=== PATIENT | female | born 1960 | race American Indian/Alaskan Native ===

== ENCOUNTER 2016-12-16 05:55 | Day surgery (SDC) | payer OTHER ==
[2016-12-16] MEDS ORDERED: DIPRIVAN 10 MG/ML IV ONE (07:41)
[2016-12-16] MEDS ORDERED: NACL 0.9% 1000 ML 1,000 ML IV SCH (08:00)
--- NOTE | 2016-12-16 08:07 | Anesthesia Day of Surgery ---
Anesthesia Day of Surgery - Day of Surgery Patient Examined: Yes Patient H&P Reviewed: Yes Patient is NPO: Yes
--- NOTE | 2016-12-16 08:07 | Anesthesia Consultation ---
Anesthesia Consult and Med Hx Date of service: 12/16/16 - Airway Anesthetic Teeth Evaluation: Dentures (upper) ROM Head & Neck: Adequate Mental/Hyoid Distance: Adequate Mallampati Class: Class II Intubation Access Assessment: Probably Good - Pulmonary Exam CTA: Yes - Cardiac Exam Cardiac Exam: RRR - Pre-Operative Health Status ASA Pre-Surgery Classification: ASA3 Proposed Anesthetic Plan: MAC - Pulmonary Hx Smoking: Yes (cigar 3x per week) Hx Asthma: No Hx Sleep Apnea: No - Cardiovascular System Hx Hypertension: Yes (not on meds after gastric bypass 5 yrs ago) Hx Heart Attack/AMI: No - Central Nervous System Hx Neuromuscular Disorder: No (migraine) Hx Seizures: No CVA: No - Gastrointestinal Hx Gastroesophageal Reflux Disease: Yes (med prn) - Endocrine Hx Renal Disease: No Hx Liver Disease: No Hx Non-Insulin Dependent Diabetes: No - Hematic Hx Sickle Cell Disease: No - Other Systems Hx Obesity: Yes - Additional Comments Anesthesia Medical History Comments: NAC
--- NOTE | 2016-12-16 08:26 | Operative Report ---
Operative Report Operative Report: EGD Post bypass DATE: 12/16/16 OPERATIVE REPORT - EGD PREOP DIAGNOSIS: gastric dyspepsia, GERD POSTOP DIAGNOSIS: failure of GJ anastamosis, hiatal hernia SURGERY: Upper endoscopy. SURGEON: John Meadows M.D. TYPE OF ANESTHESIA: MAC. ESTIMATED BLOOD LOSS: None. COMPLICATIONS: None. SPECIMENS REMOVED: None. FINDINGS: 1. normal esophagus 2. gastric pouch - 40ml 3. gastrojejunal anastomosis is 20mm INDICATIONS:INDICATION FOR PROCEDURE: Patient is a 56-year-old female s/p gastric bypass in. The patient is here today for evaluation for revisional surgery. The patient is here for a planned EGD to look for pathology that explain her GERD and dyspepsia symptoms. PROCEDURE DETAILS: After consent was reviewed, patient was taken back to the operating room where patient was placed in the left lateral decubitus position and a bite block was placed in the mouth. After a time-out was called, MAC anesthesia was initiated. I then passed the endoscope into the patients oropharynx, into the esophagus, visualized the entire esophagus, which was all within normal limits, with the exception of a hiatal hernia. I then visualized the gastric pouch which was normal and about 40ml in size. The gastrojejunal anastomosis was normal at about 20mm. The proximal portion of the afsaneh limb was normal. I then desufflated the gastric pouch and removed the endoscope. Patient tolerated procedure well and was transferred to recovery room in good and stable condition.
--- NOTE | 2016-12-16 08:27 | Discharge Summary ---
Providers - Providers Date of discharge: 12/16/16 Attending physician: PIA MILLER Primary care physician: CRISTIANO POZO Hospitalization Condition: Good Procedures: egd Disposition: DC- TO HOME OR SELFCARE Core Measure Documentation - Palliative Care Palliative Care/ Comfort Measures: Not Applicable - Core Measures Any of the following diagnoses?: none Exam - Physical Exam Narrative exam: unchanged from pre-op - Constitutional Vitals: Temp Pulse Resp BP Pulse Ox 97.7 F 84 20 140/84 100 12/16/16 08:06 12/16/16 08:06 12/16/16 08:06 12/16/16 08:06 12/16/16 08:06 Plan Activity: no restrictions Weight Bearing Status: Full Weight Bearing Diet: regular Follow up with: CRISTIANO POZO MD [Primary Care Provider] - 7 Days
--- NOTE | 2016-12-16 09:01 | Post Anesthesia Evaluation ---
- Post Anesthesia Evaluation Patient Participated: Yes Airway Patent: Yes Stable Respiratory Function: Yes Nausea/Vomiting: No Temp > 96.8F: Yes Pain Manageable: Yes Adequeate Hydration: Yes Anesthesia Complications: No Block Receding Appropriately: Not Applicable Patient on Ventilator: No
[2016-12-16 09:53] VITALS: BP 139/88
== END 2016-12-16 05:56 | disposition home or self-care (01) ==
LOC: GIO 05:55 → EDBD 09:00
PROVIDERS: ATTEND Surgery
DX: K91.89 Other postprocedural complications and disorders of digestive system (principal); K44.9 Diaphragmatic hernia without obstruction or gangrene; K21.9 Gastro-esophageal reflux disease without esophagitis; F17.290 Nicotine dependence, other tobacco product, uncomplicated; I10 Essential (primary) hypertension; E66.9 Obesity, unspecified; Z68.35 Body mass index [BMI] 35.0-35.9, adult; Y83.8 Other surgical procedures as the cause of abnormal reaction of the patient, or of later complication, without mention of misadventure at the time of the procedure
CPT/HCPCS: 43235; J2704; J7030

== ENCOUNTER 2021-05-21 04:46 | Emergency (ER) | payer OTHER ==
[2021-05-21] MEDS ORDERED: ALUM-MAG HYDROXIDE-SIMETHICONE 200-200-20MG/5ML ORAL LIQD 30 ML PO ONE (07:41)
[2021-05-21] MEDS ORDERED: FAMOTIDINE 20 MG TAB PO ONE (07:41)
[2021-05-21] MEDS ORDERED: LIDOCAINE VISCOUS 2% 15 ML ORAL LIQD PO ONE (07:41)
--- NOTE | 2021-05-21 07:42 | Emergency Department Report ---
ED Abdominal Pain HPI - General Chief Complaint: Abdominal Pain Stated Complaint: STOMACH PAIN PUI?: No Time Seen by Provider: 05/21/21 07:40 Source: patient Mode of arrival: Ambulatory Limitations: No Limitations - History of Present Illness Initial Comments: 60 year old AA comes to ER with 2 week hx of ongoing abd pain. Epigastric radiating to her chest with n/v. Some SOB. No diarrhea or constipation. Nothing makes worse. She states the chest pain is so bad that sometimes she has to drink water and it does relieve it. She has hx gerd- but since taking g bladder out she has had no issues. She has pcp appnt 05/29. She also has obgyn appnt this month for DUB after menopause. She denies lower abd pain. Denies vag discharge. Endorses spotting. No dysuria. No fever or chills. On exam she in nad and has no active vomiting. She has been seen by Dr Meadows in the past for similar symptoms. Pt is obese/smoker/htn- will ro atypical cardiac presentation. BP elevated on arrival. Denies cp or sob at this time. MD Complaint: abdominal pain -: Gradual, week(s) Severity: moderate Severity scale (0 -10): 9 Quality: aching, burning Consistency: intermittent Improves With: nothing Worsens With: nothing Associated Symptoms: nausea, vomiting. denies: diarrhea, fever, chills, constipation, dysuria, hematemesis, hematochezia, melena, hematuria, anorexia, syncope - Related Data LMP (females 10-50): other Allergies Allergy/AdvReac Type Severity Reaction Status Date / Time No Known Allergies Allergy Verified 12/16/16 07:55 ED Review of Systems ROS: Stated complaint: STOMACH PAIN Other details as noted in HPI Comment: All other systems reviewed and negative ED Past Medical Hx - Past Medical History Previous Medical History?: Yes Hx Hypertension: Yes (not on meds after gastric bypass 5 yrs ago) Hx Heart Attack/AMI: No Hx GERD: Yes Hx Liver Disease: No Hx Renal Disease: No Hx Sickle Cell Disease: No Hx Seizures: No Hx Asthma: No Additional medical history: gout - Surgical History Hx Cholecystectomy: Yes Additional Surgical History: g bypass - Family History Family history: other (mom dec trauma; dad dec stomach ca) - Social History Smoking Status: Current Some Day Smoker Substance Use Type: None ED Physical Exam - General Limitations: No Limitations General appearance: alert, in no apparent distress - Head Head exam: Present: atraumatic, normocephalic - Eye Eye exam: Present: normal appearance - ENT ENT exam: Present: mucous membranes moist - Neck Neck exam: Present: normal inspection - Respiratory Respiratory exam: Present: normal lung sounds bilaterally. Absent: respiratory distress - Cardiovascular Cardiovascular Exam: Present: regular rate, normal rhythm. Absent: systolic murmur, diastolic murmur, rubs, gallop - GI/Abdominal GI/Abdominal exam: Present: soft, tenderness (epigastric - LUE and "some" LLE), normal bowel sounds, other (obese) - Extremities Exam Extremities exam: Present: normal inspection - Back Exam Back exam: Present: normal inspection - Neurological Exam Neurological exam: Present: alert, oriented X3 - Psychiatric Psychiatric exam: Present: normal affect, normal mood - Skin Skin exam: Present: warm, dry, intact, normal color. Absent: rash ED Course Vital Signs 05/21/21 05/21/21 07:32 09:57 Temperature 98.1 F Pulse Rate 76 79 Respiratory 20 16 Rate Blood Pressure 175/114 166/96 [Left] O2 Sat by Pulse 100 99 Oximetry - Reevaluation(s) Reevaluation #1: 05/21/21 07:46 meds: bp med - gout med and gerd med she can not remember names not taking vitamins not taking gerd or gout meds ED Medical Decision Making - Lab Data Result diagrams: 05/21/21 07:56 05/21/21 07:56 - EKG Data -: EKG Interpreted by Me EKG shows normal: sinus rhythm Rate: normal - EKG Data When compared to previous EKG there are: no significant change Interpretation: no acute changes - Medical Decision Making Labs 05/21/21 05/21/21 05/21/21 07:56 07:56 07:56 WBC 6.7 RBC 4.80 Hgb 13.1 Hct 41.5 MCV 86 MCH 27 L MCHC 32 RDW 16.9 H Plt Count 298 Lymph % (Auto) 39.9 H [place] % (Auto) 7.6 H Eos % (Auto) 0.4 Baso % (Auto) 0.8 Lymph # (Auto) 2.7 [place] # (Auto) 0.5 Eos # (Auto) 0.0 Baso # (Auto) 0.1 Seg Neutrophils % 51.3 Seg Neutrophils # 3.4 Sodium 142 Potassium 3.4 L Chloride 101.5 Carbon Dioxide 25 Anion Gap 19 BUN 6 L Creatinine 0.6 Estimated GFR > 60 BUN/Creatinine Ratio 10 Glucose 118 H Calcium 8.5 Total Bilirubin 0.50 AST 53 H ALT 28 Alkaline Phosphatase 95 Troponin T < 0.010 Total Protein 7.0 Albumin 4.2 Albumin/Globulin Ratio 1.5 Amylase 27 Lipase 48 Vital Signs 05/21/21 07:32 Temperature 98.1 F Pulse Rate 76 Respiratory 20 Rate Blood Pressure 175/114 [Left] O2 Sat by Pulse 100 Oximetry labs noted K replaced I've had a long discussion with pt about her vitamins - she has them she just has not been taking them. She states she will start to take them. She states she is taking her bp meds but not her gerd meds. bp noted on arrival taking meds bp down trending prior to dc Vital Signs 05/21/21 05/21/21 07:32 09:57 Temperature 98.1 F Pulse Rate 76 79 Respiratory 20 16 Rate Blood Pressure 175/114 166/96 [Left] O2 Sat by Pulse 100 99 Oximetry pain was gone p GI cocktail we have discussed her compliance with ppi on dc exam she is taking po/nad/no pain/ambulatory dc home with dc plan of care including diet, activity, meds and follow up. She verbalizes understanding of plan of care - Differential Diagnosis ro choley/gerd Critical care attestation.: If time is entered above; I have spent that time in minutes in the direct care of this critically ill patient, excluding procedure time. ED Disposition Clinical Impression: Epigastric pain, Hypokalemia, Hx of gastroesophageal reflux (GERD) Disposition: 01 HOME / SELF CARE / HOMELESS Is pt being admited?: No Does the pt Need Aspirin: No Condition: Stable Instructions: Abdominal Pain (ED) Additional Instructions: take your vitamins as we discussed daily over the counter pepcid 40 mg by mouth follow up with Dr Meadows stay well hydrated monitor your blood pressure and take your bp meds it was elevated today follow up with pcp - referral below follow up with your pcp and obgyn as you have planned Referrals: PRIMARY CARE, [Primary Care Provider] - 3-5 Days CIERRA FERREIRA MD [Staff Physician] - 3-5 Days PIA MEADOWS MD [Staff Physician] - 3-5 Days Forms: Work/School Release Form(ED) Time of Disposition: 09:30
[2021-05-21 08:33] LABS: Basophils # (Auto) 0.1 K/mm3 (0.0-0.1); Basophils % (Auto) 0.8 % (0.0-1.8); Eosinophils % (Auto) 0.4 % (0.0-4.3); Hematocrit 41.5 % (30.3-42.9); Hemoglobin 13.1 gm/dl (10.1-14.3); Lymphocytes # (Auto) 2.7 K/mm3 (1.2-5.4); Lymphocytes % (Auto) 39.9 % (13.4-35.0); Mean Corpuscular HGB Conc 32 % (30-34); Mean Corpuscular Volume 86 fl (79-97); Monocytes # (Auto) 0.5 K/mm3 (0.0-0.8); Monocytes % (Auto) 7.6 % (0.0-7.3); Platelet Count 298 K/mm3 (140-440); Red Cell Distribution Width 16.9 % (13.2-15.2)
[2021-05-21 08:56] LABS: Alanine Aminotransferase 28 units/L (7-56); Albumin 4.2 g/dL (3.9-5); Blood Urea Nitrogen 6 mg/dL (7-17); Calcium 8.5 mg/dL (8.4-10.2); Hemolysis Index 7
[2021-05-21 08:58] LABS: BUN/Creatinine Ratio 10
[2021-05-21] MEDS ORDERED: POTASSIUM CHLORIDE ER 20 MEQ TAB PO ONE (09:27)
[2021-05-21 09:58] VITALS: BP 166/96
== END 2021-05-21 09:59 | disposition home or self-care (01) ==
LOC: ED 04:46
DX: R10.13 Epigastric pain (principal); E87.6 Hypokalemia; K21.9 Gastro-esophageal reflux disease without esophagitis; F17.200 Nicotine dependence, unspecified, uncomplicated; I10 Essential (primary) hypertension
CPT/HCPCS: 36415; 80053; 82150; 83690; 84484; 85025; 99283

== ENCOUNTER 2021-11-06 08:53 | Inpatient (IN) | payer SELFPAY ==
[2021-11-06] MEDS ORDERED: ONDANSETRON 4 MG/2 ML INJ IV ONE (10:09)
[2021-11-06] MEDS ORDERED: PANTOPRAZOLE 40 MG INJ IV ONE (10:09)
[2021-11-06] MEDS ORDERED: MORPHINE 4 MG/1 ML INJ IV ONE (10:09)
--- NOTE | 2021-11-06 10:11 | Emergency Department Report ---
ED General Adult HPI - General Chief complaint: Abdominal Pain Stated complaint: STOMACH PAIN Time Seen by Provider: 11/06/21 09:30 Source: patient, RN notes reviewed Mode of arrival: Ambulatory Limitations: Physical Limitation - History of Present Illness Initial comments: The patient was evaluated in the emergency department for symptoms described in the history of present illness. He/she was evaluated in the context of the global COVID-19 pandemic, which necessitated consideration that the patient might be at risk for infection with the virus that causes COVID-19. Institutional protocols and algorithms that pertain to the evaluation of patien ts at risk for COVID-19 are in a state of rapid change based on information released by regulatory bodies including the CDC and federal and state organizations. These policies and algorithms were followed during the patient's care in the emergency department. Please note that these policies, procedures and recommendations changed on a rapid basis. This is a 61-year-old female with a distant history of gastric bypass and cholecystectomy. She presents to the ER today with a complaint of diffuse abdominal pain with nausea. No headache or neck pain. No shortness of breath had chest pain yesterday, but is not having chest pain today. No dysuria. Denies travel, surgery, immobilization, DVT and pulmonary embolism risk factors. Abdominal pain diffuse, sharp and throbbing, increases with palpation and decreases with rest -: Gradual, days(s) Location: chest, abdomen Quality: other Consistency: other Improves with: other Worsens with: other - Related Data Allergies Allergy/AdvReac Type Severity Reaction Status Date / Time No Known Allergies Allergy Verified 12/16/16 07:55 ED Review of Systems ROS: Stated complaint: STOMACH PAIN Other details as noted in HPI Constitutional: malaise, weakness. denies: fever Eyes: denies: eye discharge ENT: denies: epistaxis Respiratory: denies: cough Cardiovascular: chest pain Gastrointestinal: abdominal pain, nausea Genitourinary: denies: dysuria Musculoskeletal: myalgia Neurological: weakness Psychiatric: anxiety Hematological/Lymphatic: denies: easy bleeding ED Past Medical Hx - Past Medical History Hx Hypertension: Yes (not on meds after gastric bypass 5 yrs ago) Hx Heart Attack/AMI: No Hx GERD: Yes Hx Liver Disease: No Hx Renal Disease: No Hx Sickle Cell Disease: No Hx Seizures: No Hx Asthma: No Additional medical history: gout, stomach ulcer - Surgical History Hx Cholecystectomy: Yes Additional Surgical History: g bypass - Social History Smoking Status: Never Smoker ED Physical Exam - General Limitations: No Limitations General appearance: alert, anxious, in distress, obese - Head Head exam: Present: atraumatic, normocephalic - Eye Eye exam: Present: normal appearance, EOMI. Absent: nystagmus - ENT ENT exam: Present: normal exam, normal orophraynx, mucous membranes moist, normal external ear exam - Neck Neck exam: Present: normal inspection, full ROM. Absent: tenderness, meningismus - Respiratory Respiratory exam: Present: normal lung sounds bilaterally. Absent: respiratory distress, wheezes, rales, rhonchi, stridor, decreased breath sounds - Cardiovascular Cardiovascular Exam: Present: normal rhythm, tachycardia, normal heart sounds. Absent: bradycardia, irregular rhythm, systolic murmur, diastolic murmur, rubs, gallop - GI/Abdominal GI/Abdominal exam: Present: soft, tenderness, guarding. Absent: distended, rebound, rigid, pulsatile mass - Extremities Exam Extremities exam: Present: normal inspection, full ROM, other (2+ pulses noted in the bilateral upper and lower extremities. There is no palpable cord. negative Homans sign. Muscular compartments are soft. The pelvis is stable.). Absent: pedal edema, calf tenderness - Back Exam Back exam: Present: normal inspection. Absent: tenderness, CVA tenderness (R), CVA tenderness (L), paraspinal tenderness, vertebral tenderness - Neurological Exam Neurological exam: Present: alert, oriented X3, other (No facial droop. Tongue midline. Extraocular movements intact bilaterally. Facial sensation intact to light touch in V1, V2, V3 distribution bilaterally. 5 and a 5 strength in 4 extremities. Sensation intact to light touch in 4 extremities.). Absent: motor sensory deficit - Psychiatric Psychiatric exam: Present: anxious - Skin Skin exam: Present: warm, dry, intact, normal color. Absent: rash ED Course Vital Signs 11/06/21 09:31 Temperature 99.4 F Pulse Rate 117 H Respiratory 20 Rate Blood Pressure 130/94 O2 Sat by Pulse 97 Oximetry - Reevaluation(s) Reevaluation #1: 11/06/21 ideal body weight 136 lbs [place] Body Weight Equivalent to 62 kg Actual body weight is 147% (1.5x) ideal body weight Reevaluation #2: 11/06/21 13:35 Differential diagnosis, including but not limited to: Obstruction, colitis, diverticulitis, perforated viscus, pancreatitis, internal Hernia, pulmonary embolism, acute coronary syndrome, GERD, gastritis, hiatal hernia Assessment and plan: 61-year-old female status post gastric bypass with acute abdominal pain. She also has a low-grade temperature and is tachycardic. She had chest pain yesterday. Patient medicated aggressively with fluids, pain medication and nausea medication. She is found to have hypokalemia, hypomagnesemia, lactic acidosis, metabolic acidosis, elevated white blood cell count, and systemic inflammatory response syndrome. Patient's fluids will be dosed according to ideal body weight. Patient will be covered empirically with Zosyn, and appropriate electrolyte replenishment. Given complaint of chest pain, tachycardia and fever, as well as history of gastric bypass, a D-dimer is sent, elevated, CT scan of the chest is obtained, and found to be consistent with acute pancreatitis without evidence of pulmonary embolism. Hold aspirin at this time given acute abdominal pain. Contacted general surgery on-call, Dr. Scott. Discussed the patient's history, physical, laboratory studies and imaging study and clinical impression. He will follow in consultation. Hospital physician, Dr. Shell to admit patient to the medical service. Patient agreeable to admission 11/06/21 13:36 11/06/21 14:26 CTA chest shows acute pancreatitis. CT abdomen pelvis shows acute pancreatitis. Other acute findings not noted ED Medical Decision Making - Lab Data Result diagrams: 11/06/21 10:46 11/06/21 10:46 Vital Signs 11/06/21 09:31 Temperature 99.4 F Pulse Rate 117 H Respiratory 20 Rate Blood Pressure 130/94 O2 Sat by Pulse 97 Oximetry Lab Results 11/06/21 11/06/21 11/06/21 Range/Units 10:46 10:46 10:46 WBC 15.6 H (4.5-11.0) K/mm3 RBC 5.07 H (3.65-5.03) M/mm3 Hgb 13.6 (10.1-14.3) gm/dl Hct 43.8 H (30.3-42.9) % MCV 86 (79-97) fl MCH 27 L (28-32) pg MCHC 31 (30-34) % RDW 17.4 H (13.2-15.2) % Plt Count 244 (140-440) K/mm3 PT (12.2-14.9) Sec. INR (0.87-1.13) D-Dimer (0-234) ng/mlDDU Sodium 136 L (137-145) mmol/L Potassium 2.3 L* (3.6-5.0) mmol/L Chloride 91.4 L (98-107) mmol/L Carbon Dioxide 27 (22-30) mmol/L Anion Gap 20 mmol/L BUN 3 L (7-17) mg/dL Creatinine 0.7 (0.6-1.2) mg/dL Estimated GFR > 60 ml/min BUN/Creatinine Ratio 4 % Glucose 146 H (65-100) mg/dL Lactic Acid (0.7-2.0) mmol/L Calcium 7.9 L (8.4-10.2) mg/dL Magnesium (1.7-2.3) mg/dL Total Bilirubin 1.20 (0.1-1.2) mg/dL AST 77 H (5-40) units/L ALT 60 H (7-56) units/L Alkaline Phosphatase 107 (35-129) units/L Troponin T < 0.010 (0.00-0.029) ng/mL Total Protein 6.5 (6.3-8.2) g/dL Albumin 3.7 L (3.9-5) g/dL Albumin/Globulin Ratio 1.3 % Lipase 683 H (13-60) units/L Blood Type Antibody Screen 11/06/21 11/06/21 11/06/21 Range/Units 10:46 10:46 10:54 WBC (4.5-11.0) K/mm3 RBC (3.65-5.03) M/mm3 Hgb (10.1-14.3) gm/dl Hct (30.3-42.9) % MCV (79-97) fl MCH (28-32) pg MCHC (30-34) % RDW (13.2-15.2) % Plt Count (140-440) K/mm3 PT 15.1 H (12.2-14.9) Sec. INR 1.04 (0.87-1.13) D-Dimer 2484.84 H (0-234) ng/mlDDU Sodium (137-145) mmol/L Potassium (3.6-5.0) mmol/L Chloride (98-107) mmol/L Carbon Dioxide (22-30) mmol/L Anion Gap mmol/L BUN (7-17) mg/dL Creatinine (0.6-1.2) mg/dL Estimated GFR ml/min BUN/Creatinine Ratio % Glucose (65-100) mg/dL Lactic Acid 5.00 H* (0.7-2.0) mmol/L Calcium (8.4-10.2) mg/dL Magnesium (1.7-2.3) mg/dL Total Bilirubin (0.1-1.2) mg/dL AST (5-40) units/L ALT (7-56) units/L Alkaline Phosphatase (35-129) units/L Troponin T (0.00-0.029) ng/mL Total Protein (6.3-8.2) g/dL Albumin (3.9-5) g/dL Albumin/Globulin Ratio % Lipase (13-60) units/L Blood Type B POSITIVE Antibody Screen Negative 11/06/21 Range/Units 11:00 WBC (4.5-11.0) K/mm3 RBC (3.65-5.03) M/mm3 Hgb (10.1-14.3) gm/dl Hct (30.3-42.9) % MCV (79-97) fl MCH (28-32) pg MCHC (30-34) % RDW (13.2-15.2) % Plt Count (140-440) K/mm3 PT (12.2-14.9) Sec. INR (0.87-1.13) D-Dimer (0-234) ng/mlDDU Sodium (137-145) mmol/L Potassium (3.6-5.0) mmol/L Chloride (98-107) mmol/L Carbon Dioxide (22-30) mmol/L Anion Gap mmol/L BUN (7-17) mg/dL Creatinine (0.6-1.2) mg/dL Estimated GFR ml/min BUN/Creatinine Ratio % Glucose (65-100) mg/dL Lactic Acid (0.7-2.0) mmol/L Calcium (8.4-10.2) mg/dL Magnesium 1.00 L (1.7-2.3) mg/dL Total Bilirubin (0.1-1.2) mg/dL AST (5-40) units/L ALT (7-56) units/L Alkaline Phosphatase (35-129) units/L Troponin T (0.00-0.029) ng/mL Total Protein (6.3-8.2) g/dL Albumin (3.9-5) g/dL Albumin/Globulin Ratio % Lipase (13-60) units/L Blood Type Antibody Screen - EKG Data -: EKG Interpreted by [facility] - EKG Data 11/06/21 13:33 The EKG is interpreted at 10: 10. Sinus rhythm, rates tachycardia, 101 bpm. Normal axis, normal P wave axis, left ventricular hypertrophy, motion artifact, nonspecific T wave abnormality. This is not a STEMI. - Radiology Data Radiology results: pending, report reviewed, image reviewed CHEST 1 VIEW 11/06/2021 9:44 AM INDICATION / CLINICAL INFORMATION: Upper abdominal pain, history of chest pain yester. COMPARISON: None available. FINDINGS: SUPPORT DEVICES: None. HEART / MEDIASTINUM: No significant abnormality. LUNGS / PLEURA: No significant pulmonary or pleural abnormality. No pneumothorax. ADDITIONAL FINDINGS: No significant additional findings. IMPRESSION: No acute abnormality. Signer Name: Jarvis Garcia MD Signed: 11/06/2021 9:48 AM Workstation Name: [id number] CTA CHEST WITH CONTRAST INDICATION / CLINICAL INFORMATION: Acute chest pain and tachycardia. TECHNIQUE: Axial CT images were obtained through the chest after injection of 100 cc of Omnipaque 350 IV contrast. 3 plane MIP and/or 3D reconstructions were produced. All CT scans at this location are performed using CT dose reduction for ALARA by means of automated exposure control. COMPARISON: None available. FINDINGS: PULMONARY EMBOLUS: None. THORACIC AORTA: No s ignificant abnormality. HEART: No significant abnormality. CORONARY ARTERY CALCIFICATION: Absent -- None. MEDIASTINUM / AMPARO: No significant abnormality. PLEURA: No pleural effusion. No pneumothorax. LUNGS: No acute air space or interstitial disease. ADDITIONAL FINDINGS: None. UPPER ABDOMEN: The liver is hypodense consistent with moderate to severe hepatic steatosis. Moderate inflammatory changes in mild fluid surrounding the pancreatic tail suggesting pancreatitis. Surgical changes are noted in the proximal stomach, correlate with history. SKELETAL STRUCTURES: No significant osseous abnormality. I MPRESSION: 1. No CT evidence for pulmonary embolism. 2. No acute cardiopulmonary findings are appreciated. 3. Acute pancreatitis is suspected in the upper abdomen which is partially imaged. 4. Moderate to severe hepatic steatosis. Signer Name: Davidson Villafuerte Jr, MD Signed: 11/06/2021 12:31 PM Workstation Name: [id number] CT ABDOMEN AND PELVIS WITH CONTRAST INDICATION / CLINICAL INFORMATION: Acute abdominal pain. IV oral contrast. TECHNIQUE: Axial CT images were obtained through the abdomen and pelvis after 100 cc of Omnipaque 350 IV contrast. Sagittal and coronal reformatted images. All CT scans at this location are performed using CT dose reduction for ALARA by means of automated exposure control. COMPARISON: None available. FINDINGS: LOWER CHEST: No significant abnormality. LIVER: The liver is diffusely hypodense consistent with moderate to severe steatosis. No focal liver mass. GALLBLADDER: Surgically absent. BILE DUCTS: No significant abnormality. PANCREAS: The pancreatic tissue is mildly edematous with surrounding fluid and inflammatory change consistent with acute interstitial pancreatitis. No focal mass or pseudocyst. No necrosis. SPLEEN: No significant abnormality. ADRENALS: No significant abnormality. RIGHT KIDNEY and URETER: No significant abnormality. 1.7 cm cyst is noted near mid pole. LEFT KIDNEY and URETER: No significant abnormality. STOMACH and SMALL BOWEL: Surgical changes are identified in the proximal stomach which may represent bypass. Surgical suture lines are also identified in the mid small bowel. The remaining small bowel is unremarkable. COLON: No significant abnormality. APPENDIX: No significant abnormality. PERITONEUM: No free air. No fluid collection. LYMPH NODES: No significant adenopathy. AORTA and ARTERIES: No significant abnormality. IVC and VEINS: No significant abnormality. URINARY BLADDER: No significant abnormality. REPRODUCTIVE ORGANS: Moderate uterine fibroid disease is identified. There are at least 3 moderate to large fibroids with the largest measuring up to 4.7 cm. The adnexa are unremarkable. ADDITIO NAL FINDINGS: None. SKELETAL SYSTEM: No significant abnormality. IMPRESSION: Acute interstitial pancreatitis. Moderate to severe hepatic steatosis. Cholecystectomy. No biliary dilatation. Moderate uterine fibroid disease. Signer Name: Davidson Villafuerte Jr, MD Signed: 11/06/2021 12:38 PM Workstation Name: [id number] Critical Care Time: Yes Critical care time in (mins) excluding proc time.: 35 Critical care attestation.: If time is entered above; I have spent that time in minutes in the direct care of this critically ill patient, excluding procedure time. ED Disposition Clinical Impression: Acute abdominal pain, Hypokalemia, Systemic inflammatory response syndrome (SIRS), Dehydration, Transaminitis, Hypomagnesemia, Acute pancreatitis Disposition: 09 ADMITTED INPATIENT Is pt being admited?: Yes Does the pt Need Aspirin: No Condition: Serious Instructions: Abdominal Pain (ED) Referrals: PRIMARY CARE, [Primary Care Provider] - 3-5 Days
--- NOTE | 2021-11-06 10:52 | XRay Report ---
CHEST 1 VIEW 11/06/2021 9:44 AM INDICATION / CLINICAL INFORMATION: Upper abdominal pain, history of chest pain yester. COMPARISON: None available. FINDINGS: SUPPORT DEVICES: None. HEART / MEDIASTINUM: No significant abnormality. LUNGS / PLEURA: No significant pulmonary or pleural abnormality. No pneumothorax. ADDITIONAL FINDINGS: No significant additional findings. IMPRESSION: No acute abnormality. Signer Name: Jarvis Garcia MD Signed: 11/06/2021 10:48 AM Workstation Name: [id number]
[2021-11-06] MEDS ORDERED: SODIUM CHLORIDE 0.9% 500 ML 500 ML IV SCH (11:00)
[2021-11-06 11:17] LABS: Hematocrit 43.8 % (30.3-42.9); Hemoglobin 13.6 gm/dl (10.1-14.3); Mean Corpuscular HGB Conc 31 % (30-34); Mean Corpuscular Volume 86 fl (79-97); Platelet Count 244 K/mm3 (140-440); Red Blood Count 5.07 M/mm3 (3.65-5.03); Red Cell Distribution Width 17.4 % (13.2-15.2)
[2021-11-06 11:31] LABS: Alanine Aminotransferase 60 units/L (7-56); Albumin 3.7 g/dL (3.9-5); Blood Urea Nitrogen 3 mg/dL (7-17); Calcium 7.9 mg/dL (8.4-10.2); Hemolysis Index 4
[2021-11-06 11:42] LABS: BUN/Creatinine Ratio 4
[2021-11-06 11:55] LABS: INR 1.04 (0.87-1.13)
[2021-11-06] MEDS ORDERED: LACTATED RINGERS IV ONE (12:06)
[2021-11-06] MEDS ORDERED: PIPERACIL/TAZOBACTA 4.5/NS 100 4.5 GM/100 ML VIAL IV ONE (12:06)
[2021-11-06] MEDS ORDERED: HYDROmorphone 1 MG/1 ML INJ IV ONE ×2 (12:08→13:45)
[2021-11-06] MEDS: POTASSIUM CHLORIDE 10 MEQ 10 MEQ/100 ML BAG IV SCH ×3 (12:36→17:59)
--- NOTE | 2021-11-06 13:35 | Cat Scan Report ---
CTA CHEST WITH CONTRAST INDICATION / CLINICAL INFORMATION: Acute chest pain and tachycardia. TECHNIQUE: Axial CT images were obtained through the chest after injection of 100 cc of Omnipaque 350 IV contrast. 3 plane MIP and/or 3D reconstructions were produced. All CT scans at this location are performed using CT dose reduction for ALARA by means of automated exposure control. COMPARISON: None available. FINDINGS: PULMONARY EMBOLUS: None. THORACIC AORTA: No significant abnormality. HEART: No significant abnormality. CORONARY ARTERY CALCIFICATION: Absent -- None. MEDIASTINUM / AMPARO: No significant abnormality. PLEURA: No pleural effusion. No pneumothorax. LUNGS: No acute air space or interstitial disease. ADDITIONAL FINDINGS: None. UPPER ABDOMEN: The liver is hypodense consistent with moderate to severe hepatic steatosis. Moderate inflammatory changes in mild fluid surrounding the pancreatic tail suggesting pancreatitis. Surgical changes are noted in the proximal stomach, correlate with history. SKELETAL STRUCTURES: No significant osseous abnormality. IMPRESSION: 1. No CT evidence for pulmonary embolism. 2. No acute cardiopulmonary findings are appreciated. 3. Acute pancreatitis is suspected in the upper abdomen which is partially imaged. 4. Moderate to severe hepatic steatosis. Signer Name: Davidson Villafuerte Jr, MD Signed: 11/06/2021 1:31 PM Workstation Name: [id number]
--- NOTE | 2021-11-06 13:42 | Cat Scan Report ---
CT ABDOMEN AND PELVIS WITH CONTRAST INDICATION / CLINICAL INFORMATION: Acute abdominal pain. IV oral contrast. TECHNIQUE: Axial CT images were obtained through the abdomen and pelvis after 100 cc of Omnipaque 350 IV contras t. Sagittal and coronal reformatted images. All CT scans at this location are performed using CT dose reduction for ALARA by means of automated exposure control. COMPARISON: None available. FINDINGS: LOWER CHEST: No significant abnormality. LIVER: The liver is diffusely hypodense consistent with moderate to severe steatosis. No focal liver mass. GALLBLADDER: Surgically absent. BILE DUCTS: No significant abnormality. PANCREAS: The pancreatic tissue is mildly edematous with surrounding fluid and inflammatory change co nsistent with acute interstitial pancreatitis. No focal mass or pseudocyst. No necrosis. SPLEEN: No significant abnormality. ADRENALS: No significant abnormality. RIGHT KIDNEY and URETER: No significant abnormality. 1.7 cm cyst is noted near mid pole. LEFT KIDNEY and URETER: No significant abnormality. STOMACH and SMALL BOWEL: Surgical changes are identified in the proximal stomach which may represent bypass. Surgical suture lines are also identified in the mid small bowel. The remaining small bowel i s unremarkable. COLON: No significant abnormality. APPENDIX: No significant abnormality. PERITONEUM: No free air. No fluid collection. LYMPH NODES: No significant adenopathy. AORTA and ARTERIES: No significant abnormality. IVC and VEINS: No significant abnormality. URINARY BLADDER: No significant abnormality. REPRODUCTIVE ORGANS: Moderate uterine fibroid disease is identified. There are at least 3 moderate to large fibroids with the largest measuring up to 4.7 cm. The adnexa are unremarkable. ADDITIONAL FINDINGS: None. SKELETAL SYSTEM: No significant abnormality. IMPRESSION: Acute interstitial pancreatitis. Moderate to severe hepatic steatosis. Cholecystectomy. No biliary dilatation. Moderate uterine fibroid disease. Signer Name: Davidson Villafuerte Jr, MD Signed: 11/06/2021 1:38 PM Workstation Name: [id number]
[2021-11-06] MEDS ORDERED: MAGNESIUM SULFATE 4 GM/100 ML BAG IV ONE (14:00)
[2021-11-06] MEDS ORDERED: SODIUM CHLORIDE 0.9% 1000 ML 3,000 ML IV ONE (15:10)
[2021-11-06] MEDS ORDERED: ALBUTEROL 2.5 MG/3 ML NEBU IH PRN (15:14)
[2021-11-06] MEDS ORDERED: ONDANSETRON 4 MG/2 ML INJ IV PRN (15:14)
[2021-11-06] MEDS ORDERED: ACETAMINOPHEN 650 MG RECT SUPP PR PRN (15:14)
--- NOTE | 2021-11-06 15:16 | History and Physical Report ---
History of Present Illness Chief complaint: My stomach hurts History of present illness: 61 YO Female with Obesity, ETOH Dependence, PUD presents ED for evaluation. Patient reports "my stomach hurts". Patient states that she has experienced abdominal pain over the past 2 days with persistent symptoms over the same t imeframe. Patient states that pain is intermittent, -01/2010, without exacerbating or alleviating factors. Patient acknowledges daily alcohol ingestion. Patient acknowledges that vodka is her drink of choice. Patient states that she last drank alcohol on Friday. Patient transported to [facility] via private vehicle for further care and evaluation of the aforementioned symptoms. The patient was seen and evaluated in the emergency department. All lab and imaging studies reviewed. Patient found to have acute pancreatitis suspect secondary to chronic alcohol ingestion, SIRS, hyponatremia, hypokalemia, metabolic acidosis. Patient admitted to medical floor due to increased risk of worsening symptoms and medical stabilization. Patient initiated on CIWA protocol as well as bowel rest and IV fluid resuscitation therapy. Patient had fever, chills, chest pain, palpitation, productive cough, skin rash and recent contact, or known exposure to COVID-19. No prior admission for review. No medication listed at time of admission for reconciliation. Advanced care planning conducted in ED. Past History Past Medical History: other (See HPI) Past Surgical History: Other (Gastric bypass) Social history: , alcohol abuse. denies: smoking Family history: diabetes, hypertension Medications and Allergies Allergies Allergy/AdvReac Type Severity Reaction Status Date / Time No Known Allergies Allergy Verified 12/16/16 07:55 Active Meds: Active Medications Sodium Chloride (Nacl 0.9% 500 Ml) 500 mls @ 50 mls/hr IV DIRECT VIKI Potassium Chloride (Kcl 10meq/100ml) 10 meq in 100 mls @ 100 mls/hr IV Q1H VIKI Stop: 11/06/21 15:59 Last Admin: 11/06/21 14:27 Dose: 100 mls/hr Magnesium Sulfate (Magnesium Sulfate 4gm/100ml) 4 gm in 100 mls @ 25 mls/hr IV ONCE ONE Stop: 11/06/21 17:59 Sodium Chloride (Nacl 0.9% 1000 Ml) 3,000 mls @ 999 mls/hr IV BOLUS ONE Stop: 11/06/21 18:10 Review of Systems Constitutional: no weight loss, no weight gain Ears, nose, mouth and throat: no ear discharge, no tinnitis, no nose pain, no nasal discharge Breasts: no change in shape, no mass Cardiovascular: no chest pain, no rapid/irregular heart beat, no edema, no syncope Respiratory: no cough, no cough with sputum, no shortness of breath Gastrointestinal: no abdominal pain, no nausea, no diarrhea, no change in bowel habits, no hematemesis Genitourinary Female: no pelvic pain, no flank pain, no dysuria, no urinary frequency, no urgency Rectal: no pain, no incontinence, no bleeding Musculoskeletal: no neck stiffness, no neck pain, no shooting arm pain, no low back pain, no shooting leg pain Integumentary: no rash, no pruritis, no sores, no wounds, no jaundice, no blisters Neurological: no head injury, no paralysis, no numbness, no seizures, no syncope, no lack of coordination Psychiatric: no anxiety, no change in sleep habits, no hypersomnia, no change in appetite, no change in libido, no disorientation Endocrine: no cold intolerance, no polyphagia, no polydipsia Hematologic/Lymphatic: no easy bruising, no easy bleeding, no lymphedema Allergic/Immunologic: no allergic rhinitis, no wheezing, no anaphylaxis Exam - Constitutional Vitals: Temp Pulse Resp BP Pulse Ox 99.4 F 117 H 20 130/94 97 11/06/21 09:31 11/06/21 09:31 11/06/21 09:31 11/06/21 09:31 11/06/21 09:31 General appearance: Present: mild distress, obese - EENT Eyes: Present: PERRL ENT: hearing intact, clear oral mucosa - Neck Neck: Present: supple, normal ROM - Respiratory Respiratory effort: normal Respiratory: bilateral: CTA - Cardiovascular Heart Sounds: Present: S1 & S2. Absent: rub, click - Extremities Extremities: pulses symmetrical, No edema Peripheral Pulses: within normal limits - Abdominal General gastrointestinal: Present: soft, non-tender, non-distended, normal bowel sounds Female genitourinary: Present: normal - Integumentary Integumentary: Present: clear, warm, dry - Musculoskeletal Musculoskeletal: gait normal, strength equal bilaterally - Psychiatric Psychiatric: appropriate mood/affect, intact judgment & insight - Neurologic Neurologic: CNII-XII intact, moves all extremities HEART Score - HEART Score Troponin: Troponin T < 0.010 ng/mL (0.00-0.029) 11/06/21 10:46 Results - Labs CBC & Chem 7: 11/06/21 10:46 11/06/21 10:46 Labs: Abnormal lab results 11/06/21 11/06/21 11/06/21 Range/Units 10:46 10:46 10:46 WBC 15.6 H (4.5-11.0) K/mm3 RBC 5.07 H (3.65-5.03) M/mm3 Hct 43.8 H (30.3-42.9) % MCH 27 L (28-32) pg RDW 17.4 H (13.2-15.2) % PT 15.1 H (12.2-14.9) Sec. D-Dimer 2484.84 H (0-234) ng/mlDDU Sodium 136 L (137-145) mmol/L Potassium 2.3 L* (3.6-5.0) mmol/L Chloride 91.4 L (98-107) mmol/L BUN 3 L (7-17) mg/dL Glucose 146 H (65-100) mg/dL Lactic Acid (0.7-2.0) mmol/L Calcium 7.9 L (8.4-10.2) mg/dL Magnesium (1.7-2.3) mg/dL AST 77 H (5-40) units/L ALT 60 H (7-56) units/L Albumin 3.7 L (3.9-5) g/dL Lipase 683 H (13-60) units/L 11/06/21 11/06/21 11/06/21 Range/Units 10:46 11:00 12:24 WBC (4.5-11.0) K/mm3 RBC (3.65-5.03) M/mm3 Hct (30.3-42.9) % MCH (28-32) pg RDW (13.2-15.2) % PT (12.2-14.9) Sec. D-Dimer (0-234) ng/mlDDU Sodium (137-145) mmol/L Potassium (3.6-5.0) mmol/L Chloride (98-107) mmol/L BUN (7-17) mg/dL Glucose (65-100) mg/dL Lactic Acid 5.00 H* 3.70 H* (0.7-2.0) mmol/L Calcium (8.4-10.2) mg/dL Magnesium 1.00 L (1.7-2.3) mg/dL AST (5-40) units/L ALT (7-56) units/L Albumin (3.9-5) g/dL Lipase (13-60) units/L Assessment and Plan - Patient Problems (1) Acute pancreatitis Current Visit: Yes Status: Acute Qualifiers: Pancreatitis type: alcohol induced Plan to address problem: IV fluid resuscitation therapy, bowel rest, pain control, surgery team consulted in ED, alcohol cessation. (2) Volume depletion Current Visit: Yes Status: Acute Plan to address problem: IV fluid resuscitation therapy, BMP, repeat BMP in a.m., monitor fluid balance. (3) Systemic inflammatory response syndrome (SIRS) Current Visit: Yes Status: Acute Plan to address problem: CBC, CMP, chest x-ray, urinalysis, IV fluid resuscitation therapy, (4) Transaminitis Current Visit: Yes Status: Acute Plan to address problem: Chronic, secondary to chronic alcohol ingestion, supportive care. Outpatient GI follow-up. (5) DVT prophylaxis Current Visit: Yes Status: Acute Plan to address problem: SCD to bilateral lower extremities while in bed (6) Advance care planning Current Visit: Yes Status: Acute Plan to address problem: Disease education data, care plan discussed, diagnosis discussed, prognosis discussed, patient knowledges understanding agreement with care plan, +30 minutes. (7) Preventative health care Current Visit: Yes Status: Acute Plan to address problem: Patient counseled regarding weight reduction, alcohol cessation. Patient instructed to follow-up with Alcoholics Anonymous at discharge. Patient also counseled to follow-up with primary care physician for all age and risk factor appropriate screening test. +30 minutes.
[2021-11-06] MEDS: HYDROmorphone 0.5 MG/0.5 ML INJ IV PRN ×2 (16:52→23:05)
[2021-11-06] MEDS: SODIUM CHLORIDE 0.9% 1000 ML 1,000 ML IV SCH (23:06)
[2021-11-07] MEDS: HYDROmorphone 0.5 MG/0.5 ML INJ IV PRN ×2 (07:44→16:11)
--- NOTE | 2021-11-07 09:28 | Consultation ---
History of Present Illness Consult date: 11/07/21 Reason for consult: abdominal pain - History of present illness History of present illness: 61 YO Female with Obesity, ETOH Dependence, PUD presents ED for evaluation. Patient reports "my stomach hurts". Patient states that she has experienced abdominal pain over the past 2 days with persistent symptoms over the same timeframe. Patient states that pain is intermittent, -01/2010, without exacerbating or alleviating factors. Patient acknowledges daily alcohol ingestion. Patient acknowledges that vodka is her drink of choice. Patient states that she last drank alcohol on Friday. Patient transported to [facility] via private vehicle for further care and evaluation of the aforementioned symptoms. The patient was seen and evaluated in the emergency department. All lab and imaging studies reviewed. Patient found to have acute pancreatitis suspect secondary to chronic alcohol ingestion, SIRS, hyponatremia, hypokalemia, metabolic acidosis. Patient admitted to medical floor due to increased risk of worsening symptoms and medical stabilization. Patient initiated on CIWA protocol as well as bowel rest and IV fluid resuscitation therapy. Patient had fever, chills, chest pain, palpitation, productive cough, skin rash and recent contact, or known exposure to COVID-19. No prior admission for review. No medication listed at time of admission for reconciliation. Advanced care planning conducted in ED. Surgical consultation is for assistance with management of pancreatitis of unknown etiology. Patient is apparently not a drinker. She is also apparently status post a cholecystectomy. Past History Past Medical History: other (See HPI) Past Surgical History: Other (Gastric bypass) Social history: , alcohol abuse. denies: smoking Family history: diabetes, hypertension Medications and Allergies Allergies Allergy/AdvReac Type Severity Reaction Status Date / Time No Known Allergies Allergy Verified 12/16/16 07:55 Home Medications Medication Instructions Recorded Confirmed Last Taken Type No Known Home Medications [No 11/07/21 11/07/21 Unknown History Reported Home Medications] Active Meds: Active Medications Acetaminophen (Acetaminophen 650 Mg Rect Supp) 650 mg VT Q4H PRN PRN Reason: Pain MILD(1-3)/Fever >100.5/LOPEZ Albuterol (Albuterol 2.5 Mg/3 Ml Nebu) 2.5 mg IH Q4H PRN PRN Reason: Shortness Of Breath Hydromorphone HCl (Hydromorphone 0.5 Mg/0.5 Ml Inj) 0.5 mg IV Q6H PRN PRN Reason: Pain , Severe (7-10) Last Admin: 11/07/21 07:44 Dose: 0.5 mg Sodium Chloride (Nacl 0.9% 1000 Ml) 1,000 mls @ 100 mls/hr IV DIRECT [facility] Last Admin: 11/06/21 23:06 Dose: 75 mls/hr Ondansetron HCl (Ondansetron 4 Mg/2 Ml Inj) 4 mg IV Q8H PRN PRN Reason: Nausea And Vomiting Oxycodone/Acetaminophen (Oxycodone /Acetaminophen 5-325mg Tab) 1 tab PO Q8H PRN PRN Reason: Pain, Moderate (4-6) Sodium Chloride (Sodium Chloride 0.9% 10 Ml Flush Syringe) 10 ml IV BID [facility] Last Admin: 11/07/21 07:45 Dose: 10 ml Sodium Chloride (Sodium Chloride 0.9% 10 Ml Flush Syringe) 10 ml IV PRN PRN PRN Reason: LINE FLUSH Exam Vital Signs Temp Pulse Resp BP Pulse Ox 99.4 F 117 H 20 130/94 97 11/06/21 09:31 11/06/21 09:31 11/06/21 09:31 11/06/21 09:31 11/06/21 09:31 Results - Labs 11/06/21 10:46 11/06/21 10:46 Abnormal lab results 11/06/21 11/06/21 11/06/21 Range/Units 10:46 10:46 10:46 WBC 15.6 H (4.5-11.0) K/mm3 RBC 5.07 H (3.65-5.03) M/mm3 Hct 43.8 H (30.3-42.9) % MCH 27 L (28-32) pg RDW 17.4 H (13.2-15.2) % PT 15.1 H (12.2-14.9) Sec. D-Dimer 2484.84 H (0-234) ng/mlDDU Sodium 136 L (137-145) mmol/L Potassium 2.3 L* (3.6-5.0) mmol/L Chloride 91.4 L (98-107) mmol/L BUN 3 L (7-17) mg/dL Glucose 146 H (65-100) mg/dL Lactic Acid (0.7-2.0) mmol/L Calcium 7.9 L (8.4-10.2) mg/dL Magnesium (1.7-2.3) mg/dL AST 77 H (5-40) units/L ALT 60 H (7-56) units/L Albumin 3.7 L (3.9-5) g/dL Lipase 683 H (13-60) units/L 11/06/21 11/06/21 11/06/21 Range/Units 10:46 11:00 12:24 WBC (4.5-11.0) K/mm3 RBC (3.65-5.03) M/mm3 Hct (30.3-42.9) % MCH (28-32) pg RDW (13.2-15.2) % PT (12.2-14.9) Sec. D-Dimer (0-234) ng/mlDDU Sodium (137-145) mmol/L Potassium (3.6-5.0) mmol/L Chloride (98-107) mmol/L BUN (7-17) mg/dL Glucose (65-100) mg/dL Lactic Acid 5.00 H* 3.70 H* (0.7-2.0) mmol/L Calcium (8.4-10.2) mg/dL Magnesium 1.00 L (1.7-2.3) mg/dL AST (5-40) units/L ALT (7-56) units/L Albumin (3.9-5) g/dL Lipase (13-60) units/L Diabetes panel 11/06/21 Range/Units 10:46 Sodium 136 L (137-145) mmol/L Potassium 2.3 L* (3.6-5.0) mmol/L Chloride 91.4 L (98-107) mmol/L Carbon Dioxide 27 (22-30) mmol/L BUN 3 L (7-17) mg/dL Creatinine 0.7 (0.6-1.2) mg/dL Glucose 146 H (65-100) mg/dL Calcium 7.9 L (8.4-10.2) mg/dL AST 77 H (5-40) units/L ALT 60 H (7-56) units/L Alkaline Phosphatase 107 (35-129) units/L Total Protein 6.5 (6.3-8.2) g/dL Albumin 3.7 L (3.9-5) g/dL Calcium panel 11/06/21 Range/Units 10:46 Calcium 7.9 L (8.4-10.2) mg/dL Albumin 3.7 L (3.9-5) g/dL Pituitary panel 11/06/21 Range/Units 10:46 Sodium 136 L (137-145) mmol/L Potassium 2.3 L* (3.6-5.0) mmol/L Chloride 91.4 L (98-107) mmol/L Carbon Dioxide 27 (22-30) mmol/L BUN 3 L (7-17) mg/dL Creatinine 0.7 (0.6-1.2) mg/dL Glucose 146 H (65-100) mg/dL Calcium 7.9 L (8.4-10.2) mg/dL Adrenal panel 11/06/21 Range/Units 10:46 Sodium 136 L (137-145) mmol/L Potassium 2.3 L* (3.6-5.0) mmol/L Chloride 91.4 L (98-107) mmol/L Carbon Dioxide 27 (22-30) mmol/L BUN 3 L (7-17) mg/dL Creatinine 0.7 (0.6-1.2) mg/dL Glucose 146 H (65-100) mg/dL Calcium 7.9 L (8.4-10.2) mg/dL Total Bilirubin 1.20 (0.1-1.2) mg/dL AST 77 H (5-40) units/L ALT 60 H (7-56) units/L Alkaline Phosphatase 107 (35-129) units/L Total Protein 6.5 (6.3-8.2) g/dL Albumin 3.7 L (3.9-5) g/dL Assessment and Plan Surgical consultation is for assistance with management of pancreatitis of unknown etiology. Patient is apparently not a drinker. She is also apparently status post a cholecystectomy. Continue n.p.o. IV fluids serial exams and serial lipase levels. Consider GI consultation also for evaluation of pancreatitis unknown etiology.
--- NOTE | 2021-11-07 09:33 | Progress Note ---
Assessment and Plan Assessment and plan: #Acute pancreatitis #Elevated liver enzymes -likely secondary to alcohol abuse -continue IVFs and PRN pain medications -patient s/p cholecystectomy, abdominal US would not be useful as alcohol is the most likely cause -will start CLD as patient can tolerate -mild elevation of AST/ALT, t.ammy and alkaline phosphatase WNL, will continue to monitor #Volume depletion -likely secondary to above problem -continue IVFs #Elevated D-dimer -CTA chest negative for PE #Systemic inflammatory response syndrome (SIRS) -sepsis ruled out, symptoms likely due to volume depletion from pancreatitis -blood culture with NGTD x 24hrs #Hypokalemia #Hypomagnesemia -Secondary to alcohol abuse versus vomiting -We will continue to replete and monitor #History of hypertension -Patient does not take blood pressure medications at home -We will continue to monitor, will not start any agents at this time #Alcohol dependence #Alcohol abuse counseling -Patient drinks 5 standard drinks of vodka daily -[facility] protocol -Counseled on importance of alcohol cessation versus conservative drinking. Patient seems eager to quit due to recent health issues, +15mins #Advance care planning Disease education data, care plan discussed, diagnosis discussed, prognosis discussed, patient knowledges understanding agreement with care plan, +30 minutes. History Interval history: No acute events overnight. Patient reports epigastric pain that has improved since admission. She reports drinking 5 vodka filled drinks daily. Has not had nausea or vomiting since admission and would like to remain n.p.o. for now. She has no other complaints at this time. Hospitalist Physical - Physical exam Narrative exam: GENERAL: Well-developed well-nourished. Sitting on the side of the bed in no acute distress. HEENT: Normocephalic. Atraumatic. NECK: Supple. CHEST/LUNGS: CTAB on room air HEART/CARDIOVASCULAR: RRR. No murmur, rubs or gallops appreciated. ABDOMEN: +BS. NT/ND. SKIN: No rashes noted. NEURO: No focal motor deficit. Follows all commands and is ambulatory. MUSCULOSKELETAL: No joint effusion EXTREMITIES: No cyanosis, cubbing or edema. PSYCH: Cooperative. - Constitutional Vitals: Temp Pulse Resp BP Pulse Ox 98.8 F 97 H 18 121/64 95 11/07/21 03:28 11/07/21 04:00 11/07/21 03:28 11/07/21 03:28 11/07/21 03:28 General appearance: Present: mild distress, obese HEART Score - HEART Score Troponin: Troponin T < 0.010 ng/mL (0.00-0.029) 11/06/21 10:46 Results - Labs CBC & Chem 7: 11/07/21 11:31 11/07/21 11:31 Labs: Laboratory Last Values WBC 15.6 K/mm3 (4.5-11.0) H 11/06/21 10:46 RBC 5.07 M/mm3 (3.65-5.03) H 11/06/21 10:46 Hgb 13.6 gm/dl (10.1-14.3) 11/06/21 10:46 Hct 43.8 % (30.3-42.9) H 11/06/21 10:46 MCV 86 fl (79-97) 11/06/21 10:46 MCH 27 pg (28-32) L 11/06/21 10:46 MCHC 31 % (30-34) 11/06/21 10:46 RDW 17.4 % (13.2-15.2) H 11/06/21 10:46 Plt Count 244 K/mm3 (140-440) 11/06/21 10:46 PT 15.1 Sec. (12.2-14.9) H 11/06/21 10:46 INR 1.04 (0.87-1.13) 11/06/21 10:46 D-Dimer 2484.84 ng/mlDDU (0-234) H 11/06/21 10:46 Sodium 136 mmol/L (137-145) L 11/06/21 10:46 Potassium 2.3 mmol/L (3.6-5.0) L* 11/06/21 10:46 Chloride 91.4 mmol/L (98-107) L 11/06/21 10:46 Carbon Dioxide 27 mmol/L (22-30) 11/06/21 10:46 Anion Gap 20 mmol/L 11/06/21 10:46 BUN 3 mg/dL (7-17) L 11/06/21 10:46 Creatinine 0.7 mg/dL (0.6-1.2) 11/06/21 10:46 Estimated GFR > 60 ml/min 11/06/21 10:46 BUN/Creatinine Ratio 4 % 11/06/21 10:46 Glucose 146 mg/dL (65-100) H 11/06/21 10:46 Lactic Acid 3.70 mmol/L (0.7-2.0) H* 11/06/21 12:24 Calcium 7.9 mg/dL (8.4-10.2) L 11/06/21 10:46 Magnesium 1.00 mg/dL (1.7-2.3) L 11/06/21 11:00 Total Bilirubin 1.20 mg/dL (0.1-1.2) 11/06/21 10:46 AST 77 units/L (5-40) H 11/06/21 10:46 ALT 60 units/L (7-56) H 11/06/21 10:46 Alkaline Phosphatase 107 units/L (35-129) 11/06/21 10:46 Troponin T < 0.010 ng/mL (0.00-0.029) 11/06/21 10:46 Total Protein 6.5 g/dL (6.3-8.2) 11/06/21 10:46 Albumin 3.7 g/dL (3.9-5) L 11/06/21 10:46 Albumin/Globulin Ratio 1.3 % 11/06/21 10:46 Lipase 683 units/L (13-60) H 11/06/21 10:46 Blood Type B POSITIVE 11/06/21 10:54 Antibody Screen Negative 11/06/21 10:54 Microbiology: Microbiology 11/06/21 12:24 Peripheral/Venous Blood Culture - Preliminary Culture in Progress 11/06/21 12:24 Peripheral/Venous Blood Culture - Preliminary Culture in Progress Fowler/IV: Voiding Method Toilet Active Medications - Current Medications Current Medications: Generic Name Dose Route Start Last Admin Trade Name Freq PRN Reason Stop Dose Admin Acetaminophen 650 mg 11/06/21 15:14 Acetaminophen 650 Mg Rect Supp OR Q4H PRN Pain MILD(1-3)/Fever >100.5/LOPEZ Albuterol 2.5 mg 11/06/21 15:14 Albuterol 2.5 Mg/3 Ml Nebu IH Q4H PRN Shortness Of Breath Hydromorphone HCl 0.5 mg 11/06/21 15:14 11/07/21 07:44 Hydromorphone 0.5 Mg/0.5 Ml Inj IV 0.5 mg Q6H PRN Administration Pain , Severe (7-10) Sodium Chloride 1,000 mls @ 100 mls/hr 11/06/21 15:15 11/06/21 23:06 Nacl 0.9% 1000 Ml IV 75 mls/hr DIRECT VIKI Administration Ondansetron HCl 4 mg 11/06/21 15:14 Ondansetron 4 Mg/2 Ml Inj IV Q8H PRN Nausea And Vomiting Oxycodone/Acetaminophen 1 tab 11/06/21 15:14 Oxycodone /Acetaminophen 5-325mg Tab PO Q8H PRN Pain, Moderate (4-6) Sodium Chloride 10 ml 11/06/21 22:00 11/07/21 07:45 Sodium Chloride 0.9% 10 Ml Flush Syringe IV 10 ml BID VIKI Administration Sodium Chloride 10 ml 11/06/21 15:14 Sodium Chloride 0.9% 10 Ml Flush Syringe IV PRN PRN LINE FLUSH
[2021-11-07] MEDS: oxyCODONE /ACETAMINOPHEN 5-325MG TAB PO PRN ×2 (11:56→20:56)
[2021-11-07 13:13] LABS: Hemoglobin 11.8 gm/dl (10.1-14.3); Mean Corpuscular HGB Conc 33 % (30-34); Mean Corpuscular Volume 86 fl (79-97); Platelet Count 198 K/mm3 (140-440); Red Blood Count 4.21 M/mm3 (3.65-5.03)
[2021-11-07 13:48] LABS: Blood Urea Nitrogen 6 mg/dL (7-17); Calcium 7.5 mg/dL (8.4-10.2); Hemolysis Index 1
[2021-11-07 13:55] LABS: BUN/Creatinine Ratio 10
[2021-11-07] MEDS ORDERED: POTASSIUM CHLORIDE ER 20 MEQ TAB PO SCH (15:00)
[2021-11-07] MEDS: PANTOPRAZOLE 40 MG TAB PO SCH (15:59)
[2021-11-07] MEDS: POTASSIUM CHLORIDE 10 MEQ 10 MEQ/100 ML BAG IV SCH ×5 (15:59→20:59)
[2021-11-07 19:34] LABS: Bilirubin,Urine Small (Negative); Color,Urine Yellow (Yellow)
[2021-11-07 19:35] LABS: Blood,Urine Negative (Negative); PH,Urine 8.5 (5.0-7.0)
[2021-11-07 19:36] LABS: Mucus,Urine FEW /HPF; WBC,Urine < 1.0 /HPF (0.0-6.0)
[2021-11-07 19:49] LABS: Ictotest,Urine Negative (Negative)
[2021-11-07] MEDS: SODIUM CHLORIDE 0.9% 1000 ML 1,000 ML IV SCH (21:00)
[2021-11-08] MEDS: oxyCODONE /ACETAMINOPHEN 5-325MG TAB PO PRN (06:16)
[2021-11-08 06:37] LABS: Alanine Aminotransferase 33 units/L (7-56); Albumin 2.8 g/dL (3.9-5); Blood Urea Nitrogen 5 mg/dL (7-17); Calcium 7.5 mg/dL (8.4-10.2); Hemolysis Index 27
[2021-11-08 06:39] LABS: BUN/Creatinine Ratio 10
[2021-11-08 10:00] VITALS: BP 169/104
[2021-11-08] MEDS: POTASSIUM CHLORIDE ER 20 MEQ TAB PO SCH ×2 (10:08→13:42)
[2021-11-08] MEDS: HYDROmorphone 0.5 MG/0.5 ML INJ IV PRN (10:08)
[2021-11-08] MEDS: PANTOPRAZOLE 40 MG TAB PO SCH (10:08)
--- NOTE | 2021-11-08 12:07 | Discharge Summary ---
Providers - Providers Date of Admission: 11/06/21 15:14 Date of discharge: 11/08/21 Attending physician: RUBEN WALTON MD 11/06/21 12:08 Consult to Physician [CONS] Urgent Comment: Consulting Provider: ALEJANDRA STRICKLAND Physician Instructions: Reason For Exam: Acute abdominal pain, history of bariatric Primary care physician: CLIENT SERVICES ADMINISTRATOR Hospitalization Reason for admission: acute pancreatitis Condition: Good Hospital course: 61-year-old female with history of alcohol dependence who presented with abdominal pain. CT scan of the abdomen pelvis was suggestive of acute pancreatitis along with elevated lipase. Patient was started on IV fluids and diet was advanced as tolerated. Once patient had improvement in pain, she was discharged home. Disposition: 01 HOME / SELF CARE / HOMELESS Final Discharge Diagnosis (Prints w/discharge instructions): Acute pancreatitis. Volume depletion. Lactic acidosis. Elevated D-dimer. Systemic inflammatory response syndrome secondary to pancreatitis. Hypokalemia. Hypomagnesemia. History of hypertension. Alcohol dependence Time spent for discharge: 35 minutes Core Measure Documentation - Palliative Care Palliative Care/ Comfort Measures: Not Applicable - Core Measures Any of the following diagnoses?: none Exam - Physical Exam Narrative exam: GENERAL: Well-developed well-nourished. Sitting on the side of the bed in no acute distress. HEENT: Normocephalic. Atraumatic. NECK: Supple. CHEST/LUNGS: CTAB on room air HEART/CARDIOVASCULAR: RRR. No murmur, rubs or gallops appreciated. ABDOMEN: +BS. NT/ND. SKIN: No rashes noted. NEURO: No focal motor deficit. Follows all commands and is ambulatory. MUSCULOSKELETAL: No joint effusion EXTREMITIES: No cyanosis, clubbing or edema. PSYCH: Cooperative. - Constitutional Vitals: Temp Pulse Resp BP Pulse Ox 98.4 F 90 18 169/104 94 11/08/21 08:12 11/08/21 08:12 11/08/21 08:12 11/08/21 08:12 11/08/21 08:12 Plan Care Plan Goals: Please follow with your primary care provider. Advance your diet as you can tolerate it. Please cut back or quit drinking altogether to prevent future episodes of pancreatitis. Follow up with: PRIMARY MD LULY [Primary Care Provider] - 3-5 Days Prescriptions: oxyCODONE /ACETAMINOPHEN [Percocet 5/325 mg] 1 tab PO Q8H PRN 5 Days #15 tablet PRN Reason: Pain, Moderate (4-6) Pantoprazole [Protonix TAB] 40 mg PO QDAY 30 Days #30 tab Ondansetron (Nf) [Zofran TAB] 8 mg PO Q8HR PRN 5 Days #15 tablet PRN Reason: Nausea
--- NOTE | 2021-11-08 18:12 | Electrocardiograph Report ---
[facility] Test Date: 2021-11-06 Test Time: 10:08:12 Pat Name: PAO SULLIVAN Department: Room: A481 1 Gender: F Fruit Stuffer: [birth year] : 1960 Requested By: YA GARCIA Order Number: [id number] Reading MD: Raven Finley Measurements Intervals [place] Rate: 101 P: 46 OK: 133 QRS: 14 QRSD: 76 T: 190 QT: 359 QTc: 465 Interpretive Statements Sinus tachycardia Probable left atrial enlargement Nonspecific T abnormalities, diffuse leads No previous ECG available for comparison Electronically Signed On 11-08-2021 18:11:59 EDT by Raven Finley
== END 2021-11-08 16:55 | disposition home or self-care (01) | DRG 439 ==
LOC: ED 08:53 → 4A 15:14
PROVIDERS: ADMIT Internal Medicine; ATTEND Student in an Organized Health Care Education/Training Program
DX: K85.20 Alcohol induced acute pancreatitis without necrosis or infection (principal); E87.2 Acidosis; R65.10 Systemic inflammatory response syndrome (SIRS) of non-infectious origin without acute organ dysfunction; F10.20 Alcohol dependence, uncomplicated; K21.9 Gastro-esophageal reflux disease without esophagitis; M10.9 Gout, unspecified; E87.6 Hypokalemia; E86.0 Dehydration; E83.42 Hypomagnesemia; E66.9 Obesity, unspecified; Z68.31 Body mass index [BMI] 31.0-31.9, adult; Y90.9 Presence of alcohol in blood, level not specified; E86.9 Volume depletion, unspecified; Z71.41 Alcohol abuse counseling and surveillance of alcoholic; I10 Essential (primary) hypertension; Z90.49 Acquired absence of other specified parts of digestive tract; Z82.49 Family history of ischemic heart disease and other diseases of the circulatory system; Z83.3 Family history of diabetes mellitus
CPT/HCPCS: 36415; 71045; 71275; 74177; 80048; 80053; 81001; 82140; 83690; 83735; 84100; 84484; 85027; 85379; 85610; 86850; 86900; 86901; 87040; 93005; 94640; G0378; C9113; J1170; J2270; J2405; J2543; J3475; J3480; J7030; J7040; J7120; Q9967